=== PATIENT | female | born 1975 | race Caucasian/White ===

== ENCOUNTER 2021-05-11 14:26 | Emergency (ER) | payer OTHER ==
[~2021-05-11] VITALS: Ht 160 cm; Wt 90.7 kg
[2021-05-11] MEDS ORDERED: LEVOTHYROXINE100 MC2 PO (15:09)
[2021-05-11] MEDS ORDERED: HYDROCODON-ACE1 EA11 PO (16:04)
--- OUTSIDE RECORDS SUMMARY | 2021-05-11 16:44 | XMS ---
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 Shemar has no Care Guidelines for this patient. [place] VISIT COUNT (12 MO.) 1 KOURTNEY Sim TOTAL 1 NOTE: Visits indicate total known visits. ED/C VISIT TRACKING (12 MO.) 05/11/2021 14:27 KOURTNEY [facility] [place] TYPE: Emergency COMPLAINT: - LEFT LEG INJURY INPATIENT VISIT TRACKING (12 MO.) No inpatient visits to display in this time frame [email or web address]
== END 2021-05-11 16:26 | disposition home or self-care (01) ==
LOC: ED 14:26
DX: S80.02XA Contusion of left knee, initial encounter (principal); Z23 Encounter for immunization; V29.9XXA Motorcycle rider (driver) (passenger) injured in unspecified traffic accident, initial encounter
CPT/HCPCS: 73560; 90471; 90715; 99283-25; A9270